=== PATIENT | female | born 1995 | race Caucasian/White ===

== ENCOUNTER 2022-05-08 19:34 | Emergency (ER) | payer SELFPAY ==
[~2022-05-08] VITALS: Ht 157.5 cm; Wt 59.0 kg
--- NOTE | 2022-05-08 20:10 | NUR ---
A/OX3. NAD noted. Ambulatory with steady gait.
[2022-05-08 21:01] LABS: *URINE HCG, QUAL NEGATIVE (NEGATIVE)
[2022-05-08] MEDS ORDERED: ACETAMINOPHEN ES 500 MG TABLET PO ONE (21:30)
[2022-05-08] MEDS ORDERED: ACETAMINOPHEN ES 500 MG TABLET ONE (21:32)
--- NOTE | 2022-05-08 22:00 | NUR ---
Patient discharged to home in stable condition. A/Ix3. NAD noted. All belongings with patient. Patient left prior to recieving written after care instructions. Patient verbalizes understanding of instructions. Stressed follow up or return to ER for worsening s/s. Did not sign d/c paperwork.
[2022-05-08 23:03] VITALS: BP 121/78
== END 2022-05-08 22:00 | disposition home or self-care (01) ==
LOC: ER 19:34
DX: S06.0X0A Concussion without loss of consciousness, initial encounter (principal); R40.2252 Coma scale, best verbal response, oriented, at arrival to emergency department; R40.2362 Coma scale, best motor response, obeys commands, at arrival to emergency department; R40.2142 Coma scale, eyes open, spontaneous, at arrival to emergency department; W20.8XXA Other cause of strike by thrown, projected or falling object, initial encounter; Y92.512 Supermarket, store or market as the place of occurrence of the external cause
CPT/HCPCS: 84703; A4663; A9150